=== PATIENT | female | born 1990 ===

== ENCOUNTER 2020-03-26 07:55 | Inpatient (IN) ==
[2020-03-26] MEDS ORDERED: LACTATED RINGERS 500 ML IV PRN (08:54)
[2020-03-26] MEDS ORDERED: CARBOPROST TROMETHAMINE 250 MCG/ML AMP IM PRN (08:54)
[2020-03-26] MEDS ORDERED: miSOPROStoL 200 MCG TABLET PO PRN (08:54)
[2020-03-26] MEDS ORDERED: BUTORPHANOL 2 MG/ML VIAL IV PRN (08:54)
[2020-03-26] MEDS ORDERED: ONDANSETRON 4 MG/2 ML VIAL IV PRN ×2 (08:54→22:26)
[2020-03-26] MEDS ORDERED: LIDOCAINE 1% 50 ML VIAL MISC INJ ONE (08:54)
[2020-03-26] MEDS ORDERED: MEPERIDINE 50 MG/1 ML VIAL IV PRN (08:54)
[2020-03-26] MEDS ORDERED: TERBUTALINE 1 MG/1 ML VIAL SUBCUT PRN (08:54)
[2020-03-26] MEDS ORDERED: LACTATED RINGERS 1,000 ML IV SCH ×3 (09:00→22:30)
[2020-03-26] MEDS ORDERED: OXYTOCIN/LR 20 UNIT/1,000 ML BAG IV SCH (09:00)
[2020-03-26 09:16] LABS: Albumin 2.5 G/DL (3.4-5.0); Bilirubin,Total 0.4 MG/DL (0.2-1.0); Calcium 9.1 MG/DL (8.5-10.1); Osmolality,Calculated 273.8 MOS/KG (273-304); Total Protein 6.7 G/DL (6.4-8.3)
[2020-03-26 09:33] LABS: Basophils % 0.4 % (0.0-0.8); Eosinophils # 0.1 10*3/uL (0.0-0.87); Eosinophils % 0.8 % (0.00-10.9); Hematocrit 35.4 VOL% (35.7-47.0); Hemoglobin 11.4 GM/DL (12.0-16.0); Immature Granulocytes % 0.8 %; Immature Granulocytes Absolute 0.06 #; Lymphocytes # 1.4 10*3/uL (1.4-4.0); Lymphocytes % 17.8 % (21.3-54.2); Mean Corpuscular HGB Conc 32.2 GM/DL (32-36); Mean Corpuscular Volume 88.7 FL (87-102); Mean Platelet Volume 11.1 FL (9.6-12.0); Monocytes % 3.7 % (1.7-12.7); Neutrophils % 76.5 % (38.7-73.9); Platelet Count 230 T/CUMM (130-400); Red Blood Count 3.99 MC/CUMM (3.8-5.5); Red Cell Distribution Width 15.9 % (9.3-17.3); White Blood Count 7.9 T/CUMM (4-12)
[2020-03-26] MEDS ORDERED: CITRIC ACID/SODIUM CITRATE 30 ML UDCUP PO ONE (11:53)
[2020-03-26] MEDS ORDERED: ePHEDrine 50 MG/ML VIAL IV PRN (11:53)
[2020-03-26] MEDS ORDERED: FAMOTIDINE 20 MG/2 ML VIAL IV ONE (11:53)
[2020-03-26] MEDS ORDERED: LACTATED RINGERS 1,000 ML IV ONE (11:53)
[2020-03-26] MEDS ORDERED: PROMETHAZINE 25 MG/1 ML VIAL IM ONE (11:55)
[2020-03-26] MEDS ORDERED: diphenhydrAMINE 50 MG/1 ML VIAL IV PRN ×2 (11:55)
[2020-03-26] MEDS ORDERED: NALOXONE 0.4 MG/ML VIAL IV PRN (11:55)
[2020-03-26] MEDS ORDERED: LACTATED RINGERS 250 ML IV PRN (11:55)
[2020-03-26] MEDS ORDERED: hydrOXYzine HCL 25 MG/1 ML VIAL IM PRN (11:55)
[2020-03-26] MEDS ORDERED: fentaNYL 2 MCG/ROPIV 0.2% EPID 100 ML EPIDURAL SCH (12:00)
[2020-03-26] MEDS ORDERED: TRANEXAMIC ACID 1,000 MG/10 ML VIAL ONE (21:19)
[2020-03-26] MEDS ORDERED: miSOPROStoL 200 MCG TABLET ONE (21:19)
[2020-03-26] MEDS ORDERED: OXYTOCIN/LR 20 UNIT/1,000 ML BAG IV ONE ×2 (21:19→22:26)
[2020-03-26] MEDS ORDERED: METHYLERGONOVINE 0.2 MG/1 ML AMP ONE (21:19)
[2020-03-26] MEDS ORDERED: SODIUM CHLORIDE 0.9% 100 ML IV ONE ×2 (21:20→22:48)
[2020-03-26] MEDS ORDERED: CARBOPROST TROMETHAMINE 250 MCG/ML AMP IM ONE (21:20)
[2020-03-26] MEDS ORDERED: OXYTOCIN 10 UNIT/ML VIAL IM ONE (21:23)
[2020-03-26] MEDS ORDERED: OXYTOCIN/LR 30 UNIT/1,000 ML BAG IV ONE (21:30)
[2020-03-26] MEDS ORDERED: ceFAZolin 2,000 MG in PREMIX 1 EACH IV ONE (21:30)
[2020-03-26] MEDS ORDERED: CLINDAMYCIN INJ 900 MG in PREMIX 1 EACH IV ONE (21:41)
[2020-03-26] MEDS ORDERED: ACETAMINOPHEN 325 MG TABLET PO PRN (22:26)
[2020-03-26] MEDS ORDERED: RHO(D) IMMUNE GLOBULIN 300 MCG SYRINGE IM ONE (22:26)
[2020-03-26 22:37] LABS: Cord Venous Blood HCO3 19.4 MMOL/L; Cord Venous Blood PCO2 38.9 MMHG; Cord Venous Blood PO2 20.3
[2020-03-26] MEDS ORDERED: fentaNYL 100 MCG/2 ML VIAL ONE (22:41)
[2020-03-26] MEDS ORDERED: MIDAZOLAM 2 MG/2 ML VIAL ONE (22:42)
[2020-03-26] MEDS ORDERED: LIDOCAINE MPF 2% /EPI 20 ML VIAL ONE (22:43)
[2020-03-26] MEDS ORDERED: PHENYLEPHRINE 10 MG/1 ML VIAL IV ONE (22:48)
[2020-03-26] MEDS ORDERED: ACETAMINOPHEN 1,000 MG/100 ML VIAL IV ONE (22:48)
[2020-03-27] MEDS: IBUPROFEN 800 MG TABLET PO PRN ×3 (03:42→20:48)
[2020-03-27] MEDS ORDERED: ceFAZolin 1,000 MG in SYRINGE 1 EACH IV SCH (06:00)
[2020-03-27] MEDS: CLINDAMYCIN INJ 900 MG in PREMIX 1 EACH IV SCH ×2 (06:19→14:55)
[2020-03-27 06:55] LABS: Basophils % 0.2 % (0.0-0.8); Eosinophils % 0.2 % (0.00-10.9); Hematocrit 28.1 VOL% (35.7-47.0); Hemoglobin 9.2 GM/DL (12.0-16.0); Immature Granulocytes % 0.7 %; Immature Granulocytes Absolute 0.07 #; Lymphocytes # 1.3 10*3/uL (1.4-4.0); Lymphocytes % 12.3 % (21.3-54.2); Mean Corpuscular HGB Conc 32.7 GM/DL (32-36); Mean Corpuscular Volume 88.6 FL (87-102); Mean Platelet Volume 10.7 FL (9.6-12.0); Monocytes % 5.3 % (1.7-12.7); Neutrophils % 81.3 % (38.7-73.9); Platelet Count 174 T/CUMM (130-400); Red Blood Count 3.17 MC/CUMM (3.8-5.5); Red Cell Distribution Width 15.9 % (9.3-17.3); White Blood Count 10.3 T/CUMM (4-12)
[2020-03-27] MEDS: MULTIVITAMIN (PRENATAL) TABLET PO SCH (08:53)
[2020-03-27] MEDS: SIMETHICONE CHEW 80 MG TABLET PO PRN (08:53)
[2020-03-27] MEDS: MAGNESIUM HYDROXIDE SUSP 30 ML UDCUP PO PRN (08:53)
[2020-03-27] MEDS: DOCUSATE SODIUM 100 MG CAPSULE PO SCH ×2 (08:53→20:30)
[2020-03-28 08:46] VITALS: BP 133/85
[2020-03-28] MEDS: DOCUSATE SODIUM 100 MG CAPSULE PO SCH (08:56)
[2020-03-28] MEDS: MAGNESIUM HYDROXIDE SUSP 30 ML UDCUP PO PRN (08:56)
[2020-03-28] MEDS: MULTIVITAMIN (PRENATAL) TABLET PO SCH (08:56)
[2020-03-28] MEDS: SIMETHICONE CHEW 80 MG TABLET PO PRN (08:56)
[2020-03-28] MEDS ORDERED: INFLUENZA VIRUS VACCINE 0.5 ML SYRINGE IM ONE (09:30)
[2020-03-28] MEDS ORDERED: MAGNESIUM CITRATE 300 ML BOTTLE PO ONE (09:31)
== END 2020-03-28 15:50 | disposition home or self-care (01) | DRG 788 ==
LOC: N.LDOUT 07:55 → N.LD 08:01 → N.OB 03-27 01:37
PROVIDERS: ADMIT Obstetrics & Gynecology; ATTEND Obstetrics & Gynecology
PROC: LDCSECT (ICD-10-PCS; 2020-03-26 21:30)

== ENCOUNTER 2021-07-31 11:47 | Inpatient (IN) ==
[2021-07-31] MEDS ORDERED: ceFAZolin 3,000 MG in SYRINGE 1 EACH IV ONE (12:05)
[2021-07-31] MEDS ORDERED: CITRIC ACID/SODIUM CITRATE 30 ML UDCUP PO ONE (12:05)
[2021-07-31] MEDS ORDERED: FAMOTIDINE 20 MG/2 ML VIAL IV ONE (12:05)
[2021-07-31] MEDS ORDERED: LABETALOL 100 MG TABLET PO ONE (12:21)
[2021-07-31 12:29] LABS: Basophils % 0.1 % (0.0-0.8); Eosinophils # 0.1 10*3/uL (0.0-0.87); Eosinophils % 0.7 % (0.00-10.9); Hematocrit 30.5 VOL% (35.7-47.0); Immature Granulocytes % 0.7 %; Immature Granulocytes Absolute 0.05 #; Lymphocytes # 1.1 10*3/uL (1.4-4.0); Lymphocytes % 15.3 % (21.3-54.2); Mean Corpuscular HGB Conc 32.8 GM/DL (32-36); Mean Corpuscular Volume 88.7 FL (87-102); Mean Platelet Volume 10.8 FL (9.6-12.0); Monocytes % 6.5 % (1.7-12.7); Neutrophils % 76.7 % (38.7-73.9); Platelet Count 205 T/CUMM (130-400); Red Blood Count 3.44 MC/CUMM (3.8-5.5); Red Cell Distribution Width 15.4 % (9.3-17.3); White Blood Count 7.1 T/CUMM (4-12)
[2021-07-31 12:41] LABS: INR 0.9; Partial Thromboplastin Time 24.3 SECS (23.8-32.1)
[2021-07-31 12:47] LABS: Alanine Aminotransferase 13 U/L (13-56); Albumin 2.2 G/DL (3.4-5.0); Alkaline Phosphatase 216 U/L (45-117); Aspartate Amino Transferase 15 U/L (0-37); Bilirubin,Direct < 0.100 MG/DL (0.0-0.20); Bilirubin,Total < 0.39 MG/DL (0.20-1.00); Blood Urea Nitrogen 10 MG/DL (7-18); Calcium 8.2 MG/DL (8.5-10.1); Carbon Dioxide 20 MMOL/L (21-32); Estimated Glom Filtration Rate 143 ML/MIN; Glucose 124 MG/DL (74-106); Osmolality,Calculated 276.5 MOS/KG (273-304); Potassium 3.6 MMOL/L (3.5-5.1); Sodium 139 MMOL/L (136-145); Total Protein 6.1 G/DL (6.4-8.2)
[2021-07-31 14:11] LABS: Bilirubin,Urine Negative (Negative); Blood, Urine Negative (Negative); Glucose,Urine (UA) Negative (Negative); Ketones,Urine 5 mg/dL (Negative); Mucus,Urine Many /LPF (Occasional); Nitrite,Urine Negative (Negative); Protein,Urine 100 MG/DL; Squamous Epithelial Cell,Urine Many /HPF (0-10); Urine Appearance CLOUDY (Clear); Urine Color Amber (Yellow); Urine Specific Gravity 1.033 (1.001-1.035)
[2021-07-31 14:26] LABS: Protein/Creatinine Ratio,Urine 0.3 RATIO
[2021-08-01] MEDS: LABETALOL 100 MG TABLET PO SCH ×2 (06:36→07:59)
[2021-08-01] MEDS ORDERED: CITRIC ACID/SODIUM CITRATE 30 ML UDCUP PO ONE (07:30)
[2021-08-01] MEDS ORDERED: ceFAZolin 3,000 MG in SYRINGE 1 EACH IV ONE (07:30)
[2021-08-01] MEDS ORDERED: FAMOTIDINE 20 MG/2 ML VIAL IV ONE (07:30)
[2021-08-01] MEDS ORDERED: ONDANSETRON 4 MG/2 ML VIAL ONE (07:33)
[2021-08-01] MEDS ORDERED: miSOPROStoL 200 MCG TABLET ONE (07:53)
[2021-08-01] MEDS ORDERED: CARBOPROST TROMETHAMINE 250 MCG/ML AMP IM ONE (07:54)
[2021-08-01] MEDS ORDERED: METHYLERGONOVINE 0.2 MG/1 ML AMP ONE (07:54)
[2021-08-01] MEDS ORDERED: OXYTOCIN 10 UNIT/ML VIAL IM ONE ×2 (08:00)
[2021-08-01] MEDS ORDERED: OXYTOCIN/LR 30 UNIT/1,000 ML BAG IV ONE (08:00)
[2021-08-01] MEDS ORDERED: LACTATED RINGERS 1,000 ML IV SCH ×2 (08:00→10:30)
[2021-08-01] MEDS ORDERED: PHENYLEPHRINE 1 MG/10 ML SYRINGE IV ONE (09:09)
[2021-08-01] MEDS ORDERED: BUPIVACAINE SPINAL 0.75% 2 ML AMP SPINAL ONE (09:09)
[2021-08-01] MEDS ORDERED: ACETAMINOPHEN INJ 1,000 MG/100 ML VIAL IV ONE (09:14)
[2021-08-01] MEDS ORDERED: KETOROLAC 30 MG/1 ML VIAL ONE (09:20)
[2021-08-01 09:30] LABS: Cord Arterial Blood HCO3 19.9 MMOL/L
[2021-08-01 09:33] LABS: Cord Venous Blood PCO2 37.3 MMHG; Cord Venous Blood PO2 33.8 MMHG
[2021-08-01 09:36] LABS: Bilirubin,Urine Negative (Negative); Blood, Urine Small mg/dL (Negative); Glucose,Urine (UA) Negative (Negative); Ketones,Urine 5 mg/dL (Negative); Mucus,Urine Occasional /LPF (Occasional); Nitrite,Urine Negative (Negative); Protein,Urine 100 MG/DL; RBC,Urine 15 /HPF (0-4); Squamous Epithelial Cell,Urine Occasional /HPF (0-10); Urine Appearance CLEAR (Clear); Urine Color Yellow (Yellow); Urine Specific Gravity 1.023 (1.001-1.035); Urine Urobilinogen < 2.0 EU/DL (<2.0)
[2021-08-01 09:39] LABS: Cord Arterial Blood HCO3 24.1 MMOL/L
[2021-08-01 09:41] LABS: Cord Venous Blood HCO3 20.5 MMOL/L; Cord Venous Blood PCO2 35.9 MMHG; Cord Venous Blood PO2 35.7 MMHG
[2021-08-01] MEDS ORDERED: OXYTOCIN/LR 20 UNIT/1,000 ML BAG IV ONE ×2 (10:00→10:13)
[2021-08-01] MEDS ORDERED: ACETAMINOPHEN 325 MG TABLET PO PRN (10:13)
[2021-08-01] MEDS ORDERED: ONDANSETRON 4 MG/2 ML VIAL IV PRN (10:13)
[2021-08-01] MEDS ORDERED: IBUPROFEN 800 MG TABLET PO PRN (10:13)
[2021-08-01] MEDS ORDERED: RHO(D) IMMUNE GLOBULIN 300 MCG SYRINGE IM ONE (10:13)
[2021-08-01] MEDS ORDERED: NIFEdipine 10 MG CAPSULE PO ONE (11:37)
[2021-08-01] MEDS ORDERED: KETOROLAC 30 MG/1 ML VIAL IV SCH (16:00)
[2021-08-01] MEDS ORDERED: ACETAMINOPHEN 500 MG TABLET PO SCH (16:00)
[2021-08-01] MEDS: KETOROLAC 30 MG/1 ML VIAL IV SCH ×2 (16:30→21:57)
[2021-08-01] MEDS: ACETAMINOPHEN 500 MG TABLET PO PRN ×2 (16:31→21:56)
[2021-08-01] MEDS: CLINDAMYCIN INJ 600 MG/50 ML PREMIX IV SCH (16:33)
[2021-08-01 17:10] LABS: Basophils % 0.2 % (0.0-0.8); Eosinophils % 0.5 % (0.00-10.9); Hematocrit 28.9 VOL% (35.7-47.0); Hemoglobin 9.4 GM/DL (12.0-16.0); Immature Granulocytes Absolute 0.09 #; Lymphocytes # 1.1 10*3/uL (1.4-4.0); Lymphocytes % 11.8 % (21.3-54.2); Mean Corpuscular HGB Conc 32.5 GM/DL (32-36); Mean Corpuscular Volume 88.7 FL (87-102); Monocytes % 5.5 % (1.7-12.7); Platelet Count 192 T/CUMM (130-400); Red Blood Count 3.26 MC/CUMM (3.8-5.5); Red Cell Distribution Width 15.4 % (9.3-17.3); White Blood Count 8.9 T/CUMM (4-12)
[2021-08-01] MEDS: FERROUS SULFATE 325 MG TABLET PO SCH (21:54)
[2021-08-01] MEDS: DOCUSATE SODIUM 100 MG CAPSULE PO SCH (21:54)
[2021-08-02] MEDS: CLINDAMYCIN INJ 600 MG/50 ML PREMIX IV SCH (01:13)
[2021-08-02] MEDS: KETOROLAC 30 MG/1 ML VIAL IV SCH (03:48)
[2021-08-02 04:59] LABS: Basophils % 0.1 % (0.0-0.8); Eosinophils # 0.1 10*3/uL (0.0-0.87); Eosinophils % 1.4 % (0.00-10.9); Hematocrit 30.8 VOL% (35.7-47.0); Hemoglobin 9.8 GM/DL (12.0-16.0); Immature Granulocytes % 0.4 %; Immature Granulocytes Absolute 0.03 #; Lymphocytes # 1.4 10*3/uL (1.4-4.0); Lymphocytes % 19.9 % (21.3-54.2); Mean Corpuscular HGB Conc 31.8 GM/DL (32-36); Mean Corpuscular Volume 88.5 FL (87-102); Mean Platelet Volume 10.7 FL (9.6-12.0); Monocytes % 6.5 % (1.7-12.7); Neutrophils % 71.7 % (38.7-73.9); Platelet Count 208 T/CUMM (130-400); Red Blood Count 3.48 MC/CUMM (3.8-5.5); Red Cell Distribution Width 15.6 % (9.3-17.3); White Blood Count 7.1 T/CUMM (4-12)
[2021-08-02] MEDS: SIMETHICONE CHEW 80 MG TABLET PO PRN ×2 (08:52→20:05)
[2021-08-02] MEDS: MAGNESIUM HYDROXIDE SUSP 30 ML UDCUP PO PRN ×2 (08:53→20:03)
[2021-08-02] MEDS: METOCLOPRAMIDE 10 MG TABLET PO SCH ×2 (08:53→16:40)
[2021-08-02] MEDS: FERROUS SULFATE 325 MG TABLET PO SCH ×2 (08:53→20:03)
[2021-08-02] MEDS: MULTIVITAMIN (PRENATAL) TABLET PO SCH (08:53)
[2021-08-02] MEDS: DOCUSATE SODIUM 100 MG CAPSULE PO SCH ×2 (08:54→20:02)
[2021-08-03] MEDS ORDERED: MAGNESIUM CITRATE 300 ML BOTTLE PO ONE (02:05)
[2021-08-03] MEDS: SIMETHICONE CHEW 80 MG TABLET PO PRN (02:13)
[2021-08-03 09:03] VITALS: BP 134/83
[2021-08-03] MEDS: METOCLOPRAMIDE 10 MG TABLET PO SCH ×2 (09:46)
[2021-08-03] MEDS: DOCUSATE SODIUM 100 MG CAPSULE PO SCH (09:47)
[2021-08-03] MEDS: MAGNESIUM HYDROXIDE SUSP 30 ML UDCUP PO PRN (09:47)
[2021-08-03] MEDS: FERROUS SULFATE 325 MG TABLET PO SCH (09:47)
[2021-08-03] MEDS: MULTIVITAMIN (PRENATAL) TABLET PO SCH (09:47)
== END 2021-08-03 12:35 | disposition home or self-care (01) | DRG 540 ==
LOC: N.LDOUT 11:47 → N.LD 11:51 → N.OB 08-01 12:36
PROVIDERS: ADMIT Obstetrics & Gynecology; ATTEND Obstetrics & Gynecology
PROC: LDCSECT (ICD-10-PCS; 2021-08-01 09:00)